=== PATIENT | male | born 2000 | race Caucasian/White ===

== ENCOUNTER → 2021-04-09 | Outpatient (CLI) | payer OTHER ==
--- NOTE | 2021-04-09 08:56 | US ---
EXAMINATION TYPE: US groin LT DATE OF EXAM: 04/09/2021 COMPARISON: NONE CLINICAL HISTORY: R10.32 Left lower quadrant pain. Left groin pain No mass, hernia or fluid collection seen IMPRESSION: 1. Right inguinal region appears unremarkable. No suspicious masses or herniation are identified by u ltrasound.
--- NOTE | 2021-04-09 09:07 | US ---
EXAMINATION TYPE: US scrotum with doppler. Grayscale and color Doppler Duplex imaging performed of t he scrotum. DATE OF EXAM: 04/09/2021 COMPARISON: NONE CLINICAL HISTORY: R10.32 LT INGUINAL PAIN, N50.819 TESTICULAR PAIN. Pressure lt groin radiating to te sticle EXAM MEASUREMENTS: TESTICLES: Right Testicle: 5.7 x 3.6 x 2.8 cm Left Testicle: 5.9 x 3.5 x 2.8 cm EPIDIDYMIS HEAD: Right Epididymis: 1.2 x 1.3 x 1.2 cm Left Epididymis: 1.2 x 1.1 x 0.8 cm Doppler performed to assess for testicular vascularity; good bilateral color flow and waveforms are s een. There is no evidence of testicular torsion. Presence of hydroceles: no Presence of varicoceles: no IMPRESSION: 1. No suspicious acute ultrasound abnormality testicular ultrasound.
== END | disposition home or self-care (01) ==
LOC: RADUSWWP 07:59
PROVIDERS: ATTEND Family Medicine
DX: R10.32 Left lower quadrant pain (principal); N50.819 Testicular pain, unspecified
CPT/HCPCS: 76870; 93975

== ENCOUNTER → 2021-09-10 | Outpatient (CLI) | payer BC, OTHER ==
[2021-09-10 18:51] LABS: Basophils # (A) 0.04 X 10*3/uL (0.00-0.10); Basophils % (A) 0.6 %; Eosinophils % (A) 1.5 %; HCT 48.1 % (39.6-50.0); HGB 16.4 g/dL (13.0-17.0); Immature Grans, Automated 0.3 %; Lymphocytes # (A) 2.19 X 10*3/uL (0.90-5.00); Lymphocytes % (A) 33.7 %; MCH 31.3 pg (27.0-32.0); MCHC 34.1 g/dL (32.0-37.0); MCV 91.8 fL (80.0-97.0); Mean Platelet Volume 9.4 fL (9.5-12.2); Monocytes # (A) 0.53 X 10*3/uL (0.20-1.00); Monocytes % (A) 8.2 %; NRBC Per 100 WBC 0 /100 WBCS (0.0-0.0); Neutrophils # (A) 3.62 X 10*3/uL (1.80-7.70); Neutrophils % (A) 55.7 %; Platelet Count 330 X 10*3/uL (140-440); RBC 5.24 X 10*6/uL (4.40-5.60); RDW 11.4 % (11.5-14.5)
[2021-09-10 19:34] LABS: Chol/HDL Ratio 5.24 Ratio; VLDL Calculation 19.06 mg/dL (5.00-40.00)
[2021-09-10 19:53] LABS: African American GFR (CKD) 146.4 (60.0-200.0); BUN/Creat Ratio 15.84 Ratio (12.00-20.00); Blood Urea Nitrogen 12.8 mg/dL (9.0-27.0); Calcium 9.7 mg/dL (8.7-10.3); Carbon Dioxide 24.3 mmol/L (20.0-27.5); Chloride 105 mmol/L (96-109); Glucose 87 mg/dL (70-110); Non-African American GFR(CKD) 126.3 (60.0-200.0); Potassium 4.9 mmol/L (3.5-5.5); Sodium 141 mmol/L (135-145)
[2021-09-11 16:46] LABS: HIV 2 AB Non-Reactive (Non-Reactive); HIV AB P24 Non-Reactive (Non-Reactive); HIV P24 AG Non-Reactive (Non-Reactive)
[2021-09-12 09:34] LABS: C. trachomatis,PCR Negative (Neg,Equiv); Chlamydia trachomatis Source Urine
== END | disposition home or self-care (01) ==
LOC: LABWHC1 13:40
PROVIDERS: ATTEND Family Medicine
DX: Z00.00 Encounter for general adult medical examination without abnormal findings (principal); Z11.3 Encounter for screening for infections with a predominantly sexual mode of transmission; R79.89 Other specified abnormal findings of blood chemistry
CPT/HCPCS: 36415; 80048; 80061; 82306; 85025; 86318; 87390; 87491

== ENCOUNTER → 2024-05-30 | Outpatient (CLI) | payer OTHER | END | disposition home or self-care (01) | LOC: LABWHC1 09:15 | PROVIDERS: ATTEND Family Medicine | DX: R00.2 Palpitations (principal) | CPT/HCPCS: 36415; 93005 ==